=== PATIENT | male | born 1950 | race Two or more races ===

== ENCOUNTER → 2017-07-20 | Outpatient (CLI) | payer BC, MEDICARE ==
--- NOTE | 2017-07-20 19:13 | RADIOLOGY REPORT (SQ) ---
EXAM DESCRIPTION: TIBIA FIBULA LEFT COMPLETED DATE/TIME: 07/20/2017 7:03 pm REASON FOR STUDY: PAIN IN LEFT LOWER LEG COMPARISON: None. NUMBER OF VIEWS: Two views. TECHNIQUE: Two radiographic images acquired of the left tibia and fibula to include the knee and ank le in at least one projection. LIMITATIONS: None. FINDINGS: MINERALIZATION: Normal. BONES: No acute fracture or dislocation. No worrisome bone lesions. SOFT TISSUES: No obvious swelling or foreign body. OTHER: No other significant finding. IMPRESSION: NEGATIVE STUDY OF THE LEFT TIBIA AND FIBULA. NO RADIOGRAPHIC EVIDENCE OF ACUTE INJURY. TECHNICAL DOCUMENTATION: JOB ID: [id number] [employer]- All Rights Reserved Reading location - IP/workstation name: [email or web address]
== END ==
LOC: RAD 18:46
PROVIDERS: ATTEND Family Medicine
DX: M79.662 Pain in left lower leg (principal)

== ENCOUNTER → 2018-02-19 | Outpatient (CLI) | payer BC, MEDICARE ==
[2018-02-19 08:59] LABS: HEMATOCRIT 44.4 % (37.9-51.0); MEAN CORPUSCULAR HEMOGLOBIN 29.8 pg (27.0-33.4); MEAN CORPUSCULAR HGB CONC 33.8 g/dL (32.0-36.0); MEAN CORPUSCULAR VOLUME 88 fl (80-97); PLATELET COUNT 191 10^3/uL (150-450); RED BLOOD COUNT 5.04 10^6/uL (4.35-5.55); RED CELL DISTRIBUTION WIDTH 13.8 % (11.5-14.0); WHITE BLOOD COUNT 5.1 10^3/uL (4.0-10.5)
[2018-02-19 09:04] LABS: INTERNATIONAL RATION (INR) 0.95; PROTHROMBIN TIME 13.2 SEC (11.4-15.4)
[2018-02-19 09:05] LABS: PARTIAL THROMBOPLASTIN TIME 32.3 SEC (23.5-35.8)
[2018-02-19 09:17] LABS: BLOOD UREA NITROGEN 13 mg/dL (7-20); GLUCOSE 183 mg/dL (75-110)
[2018-02-19 12:37] LABS: FLUID APPEARANCE HAZY; FLUID COLOR YELLOW; FLUID TYPE PLEURAL; FLUID VISCOSITY LIQUID
--- NOTE | 2018-02-19 12:48 | RADIOLOGY REPORT (SQ) ---
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 PROCEDURE: Procedure, risks, benefit, and alternative explained to patient who then gave written con sent. The posterior left chest wall was marked using ultrasound guidance. A time-out was called for correct marking verification. Chest prepped and draped using sterile technique. Local anesthesia ac hieved using 3.5 ml of 1% lidocaine injection. A 6fr Safe-T- Centesis set was introduced into the le ft pleural space. Fluid was aspirated. The catheter was removed and the entry site was covered with sterile bandage. No immediate complications noted. Fluid was sent for testing as per Dr. Marquis Images acquired during the procedure were stored on PACS. FINDINGS: ENTRY SITE: Left posterior pleural space FLUID VOLUME: 850 mL FLUID ANALYSIS: Clear yellow fluid OTHER: Sent for testing as per ordering doctor IMPRESSION: SUCCESSFUL LEFT THORACENTESIS USING ULTRASOUND GUIDANCE. COMMENT: Patient medication list reviewed: Yes- Quality ID# [id number]:Eligible professional attests to doc umenting in the medical record they obtained, updated, or reviewed the patient's current medications. TECHNICAL DOCUMENTATION: JOB ID: [id number] [employer]- All Rights Reserved Reading location - IP/workstation name: [email or web address]
--- NOTE | 2018-02-19 12:55 | RADIOLOGY REPORT (SQ) ---
EXAM DESCRIPTION: CHEST SINGLE VIEW COMPLETED DATE/TIME: 02/19/2018 11:28 am REASON FOR STUDY: S/P LEFT THORACENTESIS COMPARISON: 06/27/2011 EXAM PARAMETERS: NUMBER OF VIEWS: One view. TECHNIQUE: Single frontal radiographic view of the chest acquired. RADIATION DOSE: NA LIMITATIONS: None. FINDINGS: LUNGS AND PLEURA: No pneumothorax post left thoracentesis. Left lower lobe partial collapse and consolidation with retrocardiac air bronchograms. No acute infiltrates right side. No right or left pleural effusion. MEDIASTINUM AND HILAR STRUCTURES: Enlarged left hilum worrisome for mass. Fullness in the AP window region worrisome for adenopathy. HEART AND VASCULAR STRUCTURES: Heart normal in size. Normal vasculature. BONES: No acute findings. HARDWARE: None in the chest. OTHER: No other significant finding. IMPRESSION: No pneumothorax post left ultrasound-guided thoracentesis. Partial collapse left lower lobe with consolidation likely atelectasis. Left hilar and AP window mediastinal mass TECHNICAL DOCUMENTATION: JOB ID: [id number] [employer]- All Rights Reserved Reading location - IP/workstation name: [facility]-RR
[2018-02-19 12:56] LABS: FLUID SOURCE LUNG
[2018-02-19 14:20] VITALS: BP 115/77
--- NOTE | 2018-02-19 14:35 | RADIOLOGY REPORT (SQ) ---
EXAM DESCRIPTION: CHEST SINGLE VIEW COMPLETED DATE/TIME: 02/19/2018 2:21 pm REASON FOR STUDY: 2 HOURS S/P LEFT THORACENTESIS AT 1325 COMPARISON: Earlier the same day. EXAM PARAMETERS: NUMBER OF VIEWS: One view. TECHNIQUE: Single frontal radiographic view of the chest acquired. RADIATION DOSE: NA LIMITATIONS: None. FINDINGS: LUNGS AND PLEURA: No opacities, masses or pneumothorax. No pleural effusion. MEDIASTINUM AND HILAR STRUCTURES: No masses. Contour normal. HEART AND VASCULAR STRUCTURES: Heart normal in size. Normal vasculature. BONES: No acute findings. HARDWARE: None in the chest. OTHER: No other significant finding. IMPRESSION: No pneumothorax 2 hours status post left-sided thoracentesis. TECHNICAL DOCUMENTATION: JOB ID: [id number] [employer]- All Rights Reserved Reading location - IP/workstation name: [email or web address]
--- NOTE | 2018-02-20 08:54 | RADIOLOGY REPORT (SQ) ---
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 TECHNIQUE: Blood glucose level was verified. Above dose of FDG was injected intravenously. 2-D seg mented attenuation correction images were obtained from the base of the skull to the midthighs. Nonc ontrast CT images were obtained for attenuation correction and fusion with emission images. CT image s were performed without oral or intravenous contrast and are not sensitive for parenchymal lesions. A series of overlapping emission PET images were obtained. Images reviewed and manipulated at [facility] work station by the radiologist. Images stored on PACS. LIMITATIONS: None. FINDINGS: HEAD AND NECK: No areas of abnormal metabolic activity in the soft tissues of the head and neck. CHEST: An anterior mediastinal mass is present encasing the aortic arch, main pulmonary artery and le ft upper lobe pulmonary vein. This extends into the AP window and left hilum, and measures 17 cm nut cracker niocaudad by 11 cm AP x 4 cm transverse. This is homogeneously metabolically active with a SUV of 8. 6. Findings are worrisome for lymphoproliferative process. There is a trace left residual pleural effusion after yesterday's thoracentesis. Along the inferior medial aspect of the pleural space, there is spotty increased pleural activity with SUV of 4.0. Ther e is minimal left basilar airspace disease with SUV of 2.0. There is a left inferior axillary 1.1 cm lymph node without significant metabolic activity. ABDOMEN AND PELVIS: Along the pancreatic body just to the left of midline, a 5 x 4.6 cm mass is prese nt, with metabolically active tissue centrally with SUV of 4.6. This is worrisome for primary pancre atic tumor. In the left retroperitoneum, dorsal to the left renal vein a 2 x 1.3 cm lymph node is present with XAVIER V of 6.5. About 20 cm from the anus, a 2 cm long segment of sigmoid colon wall thickening and luminal narrowing is present with SUV of 5.6. This could represent a sigmoid colon tumor. PROXIMAL LOWER EXTREMITIES: No areas of abnormal metabolic activity in the soft tissues of the lower extremities. BONES: No abnormal metabolic activity in the visualized skeleton. ADDITIONAL CT FINDINGS: Age-appropriate cervical degenerative disc changes. Mild atherosclerotic becka cification of the carotid bifurcations, moderate LAD calcification. 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 2 mm left upper pole, 5 mm left lower pole int rarenal nonobstructive stones. Age-appropriate degenerative disc changes lumbar spine. Few colon di verticuli without CT signs of acute diverticulitis. OTHER: Liver background SUV 2.5. Blood pool background SUV 1.6 measured at the left atrium. Too muc h scatter along the aortic arch from the adjacent mediastinal hypermetabolic tissue. IMPRESSION: Anterior mediastinal mass 17 x 11 x 4 cm with increased activity worrisome for lymphoma. Trace residual left pleural effusion with minimal increased pleural metabolic activity 5 x 4.6 cm mass in the body of the pancreas worrisome for primary tumor Focal sigmoid colon wall thickening, luminal narrowing with increased SUV worrisome for sigmoid colon malignancy Metabolically active left retroperitoneal lymph node just dorsal to the left renal vein TECHNICAL DOCUMENTATION: JOB ID: [id number] [employer]- All Rights Reserved Reading location - IP/workstation name: [email or web address]
== END | disposition home or self-care (01) ==
LOC: RAD 17:34
PROVIDERS: ATTEND Internal Medicine
DX: C25.9 Malignant neoplasm of pancreas, unspecified (principal); J91.8 Pleural effusion in other conditions classified elsewhere
CPT/HCPCS: 36415; 87205; 87070; 88185 ×15; 88184; 82962; 84520; 82565; 82947; 85027; 85610; 85730; 89050; 87075; 83615; 84157; 88162; 88305 ×2; 71045; 32555; 78815; A9552

== ENCOUNTER → 2018-02-19 | Day surgery (SDC) | payer BC, MEDICARE | LOC: RAD 08:27 | PROVIDERS: ATTEND Internal Medicine | DX: C25.9 Malignant neoplasm of pancreas, unspecified (principal); E11.9 Type 2 diabetes mellitus without complications; E78.5 Hyperlipidemia, unspecified; I10 Essential (primary) hypertension; M19.90 Unspecified osteoarthritis, unspecified site; C44.91 Basal cell carcinoma of skin, unspecified; Z88.8 Allergy status to other drugs, medicaments and biological substances | CPT/HCPCS: 32555; 36415; 71045; 78815; 82565; 82947; 82962; 83615; 84157; 84520; 85027; 85610; 85730; 87070; 87075; 87205; 88305; 89050; A9552 ==

== ENCOUNTER → 2018-02-26 | Outpatient (CLI) | payer BC, MEDICARE ==
--- NOTE | 2018-02-26 10:33 | RADIOLOGY REPORT (SQ) ---
EXAM DESCRIPTION: CHEST 2 VIEWS COMPLETED DATE/TIME: 02/26/2018 9:57 am REASON FOR STUDY: MALIGNANT PLEURAL EFFUSION,SHORTNESS OF BREATH COMPARISON: 02/19/2018 EXAM PARAMETERS: NUMBER OF VIEWS: two views TECHNIQUE: Digital Frontal and Lateral radiographic views of the chest acquired. RADIATION DOSE: NA LIMITATIONS: none FINDINGS: LUNGS AND PLEURA: There is increasing left pleural effusion. No pneumothorax or consolida tion. MEDIASTINUM AND HILAR STRUCTURES: No masses or contour abnormalities. HEART AND VASCULAR STRUCTURES: Heart normal size. No evidence for failure. BONES: No acute findings. HARDWARE: None in the chest. OTHER: No other significant finding. IMPRESSION: Increasing left-sided pleural effusion. TECHNICAL DOCUMENTATION: JOB ID: [id number] [employer]- All Rights Reserved Reading location - IP/workstation name: [email or web address]
== END ==
LOC: RAD 09:21
PROVIDERS: ATTEND Internal Medicine
DX: R06.02 Shortness of breath (principal); J91.0 Malignant pleural effusion
CPT/HCPCS: 71046

== ENCOUNTER → 2018-04-15 | Outpatient (CLI) | payer BC, MEDICARE ==
[2018-04-15 20:09] LABS: HEMATOCRIT 44.3 % (37.9-51.0); HEMOGLOBIN 15.4 g/dL (13.5-17.0); MEAN CORPUSCULAR HGB CONC 34.7 g/dL (32.0-36.0); MEAN CORPUSCULAR VOLUME 86 fl (80-97); PLATELET COUNT 199 10^3/uL (150-450); RED BLOOD COUNT 5.13 10^6/uL (4.35-5.55); RED CELL DISTRIBUTION WIDTH 13.3 % (11.5-14.0); WHITE BLOOD COUNT 7.5 10^3/uL (4.0-10.5)
[2018-04-15 20:16] LABS: ALANINE AMINOTRANSFERASE 20 U/L (21-72); ALBUMIN 3.8 g/dL (3.5-5.0); ALKALINE PHOSPHATASE 80 U/L (38-126); ANION GAP 8 (5-19); ASPARTATE AMINO TRANSFERASE 15 U/L (17-59); BILIRUBIN,DIRECT 0.2 mg/dL (0.0-0.4); BILIRUBIN,TOTAL 0.8 mg/dL (0.2-1.3); BLOOD UREA NITROGEN 18 mg/dL (7-20); CALCIUM 9.8 mg/dL (8.4-10.2); CARBON DIOXIDE 34 mmol/L (22-30); CHLORIDE 95 mmol/L (98-107); GLUCOSE 274 mg/dL (75-110); POTASSIUM 3.7 mmol/L (3.6-5.0); SODIUM 136.8 mmol/L (137-145); TOTAL PROTEIN 6.4 g/dL (6.3-8.2)
[2018-04-15 20:26] LABS: ABSOLUTE LYMPHOCYTES# (MANUAL) 0.3 10^3/uL (0.5-4.7); ABSOLUTE NEUTROPHILS# (MANUAL) 5.7 10^3/uL (1.7-8.2); BASOPHILS % (MANUAL) 0 % (0-2); EOSINOPHILS % (MANUAL) 7 % (0-6); LYMPHOCYTES % (MANUAL) 4 % (13-45); MONOCYTES % (MANUAL) 13 % (3-13); PLATELET CLUMPS PRESENT; PLATELET COMMENT ADEQUATE; RBC MORPHOLOGY COMMENT NORMO-CYTIC/CHROMIC; SEGMENTED NEUTROPHILS % (MAN) 76 % (42-78); TOTAL CELLS COUNTED 100
== END ==
LOC: LAB 19:44
PROVIDERS: ATTEND Family Medicine
DX: C82.92 Follicular lymphoma, unspecified, intrathoracic lymph nodes (principal); E11.65 Type 2 diabetes mellitus with hyperglycemia
CPT/HCPCS: 36415; 80053; 85025

== ENCOUNTER 2018-09-25 04:28 | Emergency (ER) | payer BC, MEDICARE ==
--- NOTE | 2018-09-25 05:12 | RADIOLOGY REPORT (SQ) ---
EXAM DESCRIPTION: XR CHEST 1 VIEW COMPLETED DATE/TME: 09/25/2018 04:46 CLINICAL HISTORY: 68 years, Male, SOB COMPARISON: 02/26/2018 chest NUMBER OF VIEWS: 1 TECHNIQUE: Portable chest LIMITATIONS: None. FINDINGS: Elevation of left hemidiaphragm. Cardiomegaly. Mcnepo-o-Peay catheter in place. Lungs are clear. No pneumothorax IMPRESSION: Cardiomegaly. Lungs are clear copyright 2010 [employer]- All Rights Reserved
--- NOTE | 2018-09-25 05:19 | ER Document Report ---
ED General - General TRAVEL OUTSIDE OF THE [place] IN LAST 30 DAYS: No <JUANY PERYERA - Last Filed: 09/25/18 08:05> <ESVIN CHILDERS - Last Filed: 09/25/18 09:02> - General Chief Complaint: Shortness Of Breath Stated Complaint: DIFFICULTY BREATHING Time Seen by Provider: 09/25/18 04:55 Primary Care Provider: JAMARCUS STRAUSS MD [ACTIVE STAFF] - Follow up as needed Notes: Well-appearing 5-year-old man with history of lymphoma with chemotherapy last 1 month ago presents to the emergency department for a sudden onset cough and chest pain approximately 90 minutes ago. States the chest pain is worse when he coughs but does have some very mild chest pain at rest. Patient was sleeping and it suddenly woke him up. His states that there was some mild diaphoresis. Patient denies any nausea. Did complain of some very mild shortness of breath. Denies any fevers or recent illness. (JUANY PEREYRA) - Related Data Allergies/Adverse Reactions: Cephalosporins Allergy (Unknown, Unverified 02/18/18 14:47) amoxicillin [Amoxicillin] Allergy (Verified 02/18/18 14:47) Generalized Itching GAURANG Inhibitors [Gaurang Inhibitors] Adverse Reaction (Severe, Verified 02/18/18 14:47) Swollen uvula ACEINHIBITORS [GAURANG Inhibitors] Adverse Reaction (Severe, Verified 06/23/11 08:37) SWOLLEN UVULA Past Medical History - Past Medical History Cardiac Medical History: Reports: Hx Hypercholesterolemia, Hx Hypertension Denies: Hx Atrial Fibrillation, Hx Congestive Heart Failure, Hx Coronary Artery Disease, Hx Heart Attack, Hx Peripheral Vascular Disease, Hx Heart Murmur Pulmonary Medical History: Denies: Hx Asthma, Hx Bronchitis, Hx COPD, Hx Pneumonia, Hx Tuberculosis Neurological Medical History: Denies: Hx Cerebrovascular Accident, Hx Seizures GI Medical History: Denies: Hx Crohn's Disease, Hx Gastroesophageal Reflux Disease, Hx Hepatitis, Hx Hiatal Hernia, Hx Irritable Bowel, Hx Liver Failure, Hx Pancreatitis, Hx Ulcer Musculoskeletal Medical History: Reports Hx Arthritis - GENERALIZED Infectious Medical History: Denies: Hx Hepatitis Past Surgical History: Denies: Hx Colostomy, Hx Open Heart Surgery, Hx Pacemaker - Immunizations Hx Diphtheria, Pertussis, Tetanus Vaccination: Yes <JUANY PEREYRA - Last Filed: 09/25/18 08:05> - Social History Smoking Status: Never Smoker Cigarette use (# per day): No Chew tobacco use (# tins/day): No Smoking Education Provided: No Frequency of alcohol use: None Drug Abuse: None Family History: Reviewed & Not Pertinent <JOSEESVIN Emma - Last Filed: 09/25/18 09:02> Review of Systems - Review of Systems Constitutional: See HPI EENT: No symptoms reported Cardiovascular: See HPI Respiratory: See HPI Gastrointestinal: See HPI Genitourinary: No symptoms reported Male Genitourinary: No symptoms reported Musculoskeletal: No symptoms reported Skin: No symptoms reported Hematologic/Lymphatic: No symptoms reported Neurological/Psychological: No symptoms reported <JUANY PEREYRA - Last Filed: 09/25/18 08:05> Physical Exam <JUANY PEREYRA - Last Filed: 09/25/18 08:05> - Vital signs Vitals: Temp Pulse Resp BP Pulse Ox 97.7 F 62 18 185/96 H 98 09/25/18 04:32 09/25/18 04:32 09/25/18 04:32 09/25/18 04:32 09/25/18 04:32 - Notes Notes: PHYSICAL EXAMINATION: Reviewed vital signs and charting by RN GENERAL: Well-appearing, well-nourished and in no acute distress. LUNGS: Breath sounds present, equal, and clear to auscultation bilaterally. No wheezes, rales, or rhonchi. HEART: Regular rate and rhythm without murmurs, rubs, or gallops. 2+ peripheral pulses. Normal capillary refill. ABDOMEN: Soft, nontender, nondistended. Normoactive bowel sounds. No guarding, no rebound. No masses appreciated. BACK: Normal contour, no midline tenderness. Rectal exam deferred. EXTREMITIES: Normal range of motion, no pitting or edema. No cyanosis. PSYCH: Normal mood, normal affect. No suicidal thoughts/ideations. No homocidal thoughts/ideations. No hallucinations. SKIN: Warm, dry, normal turgor, no rashes or lesions noted. (JUANY PEREYRA) Course - Laboratory Result Diagrams: 09/25/18 05:16 09/25/18 05:16 <JUANY PEREYRA - Last Filed: 09/25/18 08:05> - Laboratory Result Diagrams: 09/25/18 05:16 09/25/18 05:16 <ESVIN CHILDERS - Last Filed: 09/25/18 09:02> - Re-evaluation Re-evalutation: 09/25/18 05:15 Unable to PERC patient out. Discussed with patient that our recommendation would be to obtain CTA chest to ensure patient does not have a pulmonary embolism dissection. Patient was concerned about the radiation load considering his cancer and refused to agree to the CTA. Patient understands these risks and is of sound mind and capable to make his own decisions. Patient did agree to get basic labs and troponin to ensure no other cardiac process. 09/25/18 05:36 Patient and his had a discussion and patient ultimately agreed to obtain the CTA chest. He did request an anxiolytic as he requires them for all of his procedures. His states that Dr. José patel was given him Xanax but they did not bring any of medications with them. I have ordered Xanax 0.5 mg p.o. 1 time. 09/25/18 07:33 CTA chest negative for any aortic dissection or pulmonary embolism. Repeat troponin is ordered and scheduled to be drawn at 8:15 AM. Patient has stated he does not wish to stay in the hospital for any period of observation. (JUANY PEREYRA) 09/25/18 08:59 This Clovis Childers physician respiratory therapy assistant I have taken over patient's care for Keo in the shift supervisor PA. I have gone in and meant the patient and his and was instructed by the provider that we are waiting on a repeat troponin and if that were negative they were ready for discharge. Patient is awake alert and oriented x4 he is in no shortness of breath no chest pain and is currently ready to go home. His is a family practice physician and she is also in favor of him going home. I was informed that he has a history of lymphoma and is just gotten done with a recent chemo therapy approximately a month ago and developed a cough with a little bit of light chest pain and decided to come and have it checked out. According to the provider and his everything has been negative patient is feeling much better and they have elected to be discharged home. At this time I will discharge him home on they will follow-up as needed. Patient's troponins were both negative. (ESVIN CHILDERS) - Vital Signs Vital signs: Temp Pulse Resp BP Pulse Ox 97.7 F 62 18 185/96 H 94 09/25/18 04:32 09/25/18 04:32 09/25/18 08:00 09/25/18 04:32 09/25/18 08:00 - Laboratory Laboratory results interpreted by me: 09/25/18 09/25/18 05:16 05:16 WBC 2.7 L RBC 4.30 L RDW 14.3 H Plt Count 147 L Monocytes % (Manual) 33 H Abs Neuts (Manual) 1.1 L Carbon Dioxide 31 H Glucose 159 H Discharge <JUANY PEREYRA - Last Filed: 09/25/18 08:05> <ESVIN CHILDERS - Last Filed: 09/25/18 09:02> - Discharge Clinical Impression: Shortness of breath Condition: Stable Disposition: HOME, SELF-CARE Additional Instructions: You were seen in the emergency department this morning for shortness of breath and chest pain. Your work-up did not reveal any concerning cardiac pathology or emergent situation that would require hospitalization. Your CTA chest did not show evidence of a pulmonary embolism or concern for aortic dissection. At this time I understand you do not want to stay in the hospital for a period of observation so it is important that you adhere to strict return precautions. If you have any worsening chest pain, tearing sensation in your chest, acute worsening shortness of breath, acute weakness, or any other symptoms that concern you please do not hesitate to return to the emergency department for reevaluation. Referrals: JAMARCUS STRAUSS MD [ACTIVE STAFF] - Follow up as needed
[2018-09-25 05:34] LABS: HEMOGLOBIN 13.7 g/dL (13.5-17.0); MEAN CORPUSCULAR HGB CONC 34.3 g/dL (32.0-36.0); MEAN CORPUSCULAR VOLUME 93 fl (80-97); RED CELL DISTRIBUTION WIDTH 14.3 % (11.5-14.0); WHITE BLOOD COUNT 2.7 10^3/uL (4.0-10.5)
[2018-09-25] MEDS ORDERED: ALPRAZOLAM 0.5 MG TABLET PO ONE (05:35)
[2018-09-25 05:46] LABS: ALANINE AMINOTRANSFERASE 40 U/L (21-72); ALBUMIN 4.1 g/dL (3.5-5.0); ALKALINE PHOSPHATASE 63 U/L (38-126); ANION GAP 10 (5-19); ASPARTATE AMINO TRANSFERASE 26 U/L (17-59); BILIRUBIN,DIRECT 0.2 mg/dL (0.0-0.4); BILIRUBIN,TOTAL 0.5 mg/dL (0.2-1.3); BLOOD UREA NITROGEN 16 mg/dL (7-20); CALCIUM 9.4 mg/dL (8.4-10.2); CARBON DIOXIDE 31 mmol/L (22-30); CHLORIDE 102 mmol/L (98-107); GLUCOSE 159 mg/dL (75-110); POTASSIUM 3.7 mmol/L (3.6-5.0); TOTAL PROTEIN 6.8 g/dL (6.3-8.2)
[2018-09-25 06:07] LABS: ABSOLUTE LYMPHOCYTES# (MANUAL) 0.6 10^3/uL (0.5-4.7); ABSOLUTE MONOCYTES # (MANUAL) 0.9 10^3/uL (0.1-1.4); ABSOLUTE NEUTROPHILS# (MANUAL) 1.1 10^3/uL (1.7-8.2); ANISOCYTOSIS SLIGHT; BASOPHILS % (MANUAL) 1 % (0-2); EOSINOPHILS % (MANUAL) 3 % (0-6); LYMPHOCYTES % (MANUAL) 21 % (13-45); PLATELET CLUMPS PRESENT; PLATELET COMMENT DECREASED; SEGMENTED NEUTROPHILS % (MAN) 42 % (42-78); TOTAL CELLS COUNTED 100
[2018-09-25 06:08] LABS: STOMATOCYTES SLIGHT
[2018-09-25 06:09] LABS: MONOCYTES % (MANUAL) 33 % (3-13)
[2018-09-25 06:10] LABS: PLATELET COUNT 147 10^3/uL (150-450)
--- NOTE | 2018-09-25 07:31 | RADIOLOGY REPORT (SQ) ---
EXAM: CT chest angiography with IV contrast CLINICAL DATA: 68-year-old male with shortness of breath and history of lymphoma. TECHNICAL DATA: Following the administration of intravenous contrast, multiple high-resolution axial images of the chest were performed followed by sagittal and coronal reconstructed images. Coronal oblique MIP images were also performed. The CT study is performed according to ALARA (as low as reasonably achievable) or ALARA/IMAGE GENTLY, with automatic adjustment of mA and/or kV according to patient size. Performed on: 09/25/2018 at 6:38 AM COMPARISONS: Prior CT chest performed on 02/14/[address] scan performed on 02/20/2018. FINDINGS: There is satisfactory visualization and contrast opacification of pulmonary arteries. No definite intra-arterial filling defects are identified to suggest acute or chronic pulmonary embolism. The thoracic aorta is normal in caliber and contour without evidence of aneurysm or dissection. A right subclavian central venous catheter is present and the tip extends into the superior vena cava. The lungs are well expanded. There is elevation of the left hemidiaphragm with atelectatic changes in the left lower lobe. There is a very small left pleural effusion. The lungs are otherwise clear. The heart is normal in size. There is trace pericardial fluid adjacent to the left ventricle. Additionally, there is an anterior mediastinal soft tissue mass versus pericardial thickening likely reflecting the patient's known lymphoma. There is no evidence of hilar, mediastinal or axillary lymphadenopathy. No acute osseous abnormality is identified. There is stable fullness in the body of the pancreas when compared to the prior study. IMPRESSION: 1. No CT evidence to suggest acute or chronic pulmonary embolism, aortic aneurysm or aortic dissection. 2. Elevation of the left hemidiaphragm with atelectatic changes in the left lower lobe and small left pleural effusion. 3. Anterior mediastinal soft tissue mass likely corresponding to the patient's lymphoma. The appearance is similar to slightly less prominent when compared to the prior CT scan. 4. Trace pericardial fluid adjacent to the left ventricle. 5. Stable fullness in the body of the pancreas when compared to the prior CT scan performed on 02/14/2018.
[2018-09-25 09:40] VITALS: BP 146/91
[2018-09-25 14:02] LABS: PATH REVIEW PATHOLOGIST REVIEWED
--- NOTE | 2018-09-25 22:16 | EKG REPORT ---
SEVERITY:- ABNORMAL ECG - SINUS RHYTHM PROBABLE INFERIOR INFARCT, AGE INDETERMINATE : Confirmed by: Lizet Stoddard MD 25-Sep-2018 22:15:22
== END 2018-09-25 09:40 | disposition home or self-care (01) ==
LOC: ER 04:28
DX: R06.02 Shortness of breath (principal); R05 Cough; R07.9 Chest pain, unspecified; R61 Generalized hyperhidrosis; I10 Essential (primary) hypertension; C85.90 Non-Hodgkin lymphoma, unspecified, unspecified site; Z88.1 Allergy status to other antibiotic agents; Z88.0 Allergy status to penicillin
CPT/HCPCS: 36415; 71045; 71275; 80053; 84484; 85025; 93005; 93010; 99284

== ENCOUNTER 2020-01-25 01:09 | Emergency (ER) | payer BC, MEDICARE ==
--- NOTE | 2020-01-25 01:46 | ER Document Report ---
ED Medical Screen (RME) - General Chief Complaint: Chest Pain Stated Complaint: CHEST PAIN Time Seen by Provider: 01/25/20 01:37 Primary Care Provider: LAURA CASTRO MD [Primary Care Provider] - Follow up as needed Notes: Patient presents with chest pain that started around 330 this afternoon. Patient states pain is worse when he rolls onto his side. Patient complains of pain with deep inspiration. Patient has a history of lymphoma and does have a mass within the chest. Patient denies any shortness of breath, cough or lightheadedness. Patient has a history of dyslipidemia, hypertension and diabetes. I have greeted and performed a rapid initial assessment of this patient. A comprehensive ED assessment and evaluation of the patient, analysis of test results and completion of the medical decision making process will be conducted by additional ED providers. TRAVEL OUTSIDE OF THE [place] IN LAST 30 DAYS: No - Related Data Allergies/Adverse Reactions: Cephalosporins Allergy (Unknown, Unverified 02/18/18 14:47) amoxicillin [Amoxicillin] Allergy (Verified 02/18/18 14:47) Generalized Itching GAURANG Inhibitors [Gaurang Inhibitors] Adverse Reaction (Severe, Verified 02/18/18 14:47) Swollen uvula ACEINHIBITORS [GAURANG Inhibitors] Adverse Reaction (Severe, Verified 06/23/11 08:37) SWOLLEN UVULA Past Medical History - Past Medical History Cardiac Medical History: Reports: Hx Hypercholesterolemia, Hx Hypertension Denies: Hx Atrial Fibrillation, Hx Congestive Heart Failure, Hx Coronary Artery Disease, Hx Heart Attack, Hx Peripheral Vascular Disease, Hx Heart Murmur Pulmonary Medical History: Denies: Hx Asthma, Hx Bronchitis, Hx COPD, Hx Pneumonia, Hx Tuberculosis Neurological Medical History: Denies: Hx Cerebrovascular Accident, Hx Seizures Renal/ Medical History: Denies: Hx Peritoneal Dialysis GI Medical History: Denies: Hx Crohn's Disease, Hx Gastroesophageal Reflux Disease, Hx Hepatitis, Hx Hiatal Hernia, Hx Irritable Bowel, Hx Liver Failure, Hx Pancreatitis, Hx Ulcer Musculoskeltal Medical History: Reports Hx Arthritis - GENERALIZED Infectious Medical History: Denies: Hx Hepatitis Past Surgical History: Denies: Hx Colostomy, Hx Open Heart Surgery, Hx Pacemaker - Immunizations Hx Diphtheria, Pertussis, Tetanus Vaccination: Yes Physical Exam - Vital signs Vitals: Temp Pulse Resp BP Pulse Ox 98.0 F 65 18 148/79 H 95 01/25/20 01:01/25/20 01:01/25/20 01:01/25/20 01:01/25/20 01:29 - Respiratory Respiratory status: No respiratory distress Course - Vital Signs Vital signs: Temp Pulse Resp BP Pulse Ox 98.0 F 65 18 148/79 H 95 01/25/20 01:01/25/20 01:01/25/20 01:01/25/20 01:01/25/20 01:29 Doctor's Discharge - Discharge Referrals: LAURA CASTRO MD [Primary Care Provider] - Follow up as needed
--- NOTE | 2020-01-25 02:44 | RADIOLOGY REPORT (SQ) ---
CLINICAL INDICATION: cp. TECHNIQUE: PA and lateral views were obtained of the chest COMPARISON: 12/26/2018. FINDINGS: The cardiomediastinal silhouette is prominent but stable. The lungs are grossly clear. No evidence of effusion or pneumothorax. Atelectasis left lung base. Dual chamber port remains in good position. . IMPRESSION: No evidence of active intrathoracic disease .
[2020-01-25 02:46] LABS: ABSOLUTE BASOPHILS # (AUTO) 0.1 10^3/uL (0.0-0.2); ABSOLUTE EOSINOPHILS # (AUTO) 0.1 10^3/uL (0.0-0.6); ABSOLUTE LYMPHOCYTES (AUTO) 0.4 10^3/uL (0.5-4.7); ABSOLUTE MONOCYTES (AUTO) 0.6 10^3/uL (0.1-1.4); ABSOLUTE NEUT (AUTO) 2.8 10^3/uL (1.7-8.2); EOSINOPHILS % (AUTO) 3.4 % (0-6); HEMOGLOBIN 14.6 g/dL (13.5-17.0); LYMPHOCYTES % (AUTO) 9.3 % (13-45); MEAN CORPUSCULAR HEMOGLOBIN 30.9 pg (27.0-33.4); MEAN CORPUSCULAR HGB CONC 33.9 g/dL (32.0-36.0); MEAN CORPUSCULAR VOLUME 91 fl (80-97); MONOCYTES % (AUTO) 16.2 % (3-13); PLATELET COUNT 152 10^3/uL (150-450); RED CELL DISTRIBUTION WIDTH 14.1 % (11.5-14.0); SEGMENTED NEUTROPHILS % (AUTO) 69.1 % (42-78); TOTAL CELLS COUNTED % (AUTO) 100 %
[2020-01-25 03:10] LABS: ALKALINE PHOSPHATASE 82 U/L (38-126); ANION GAP 8 (5-19); ASPARTATE AMINO TRANSFERASE 22 U/L (17-59); BILIRUBIN,DIRECT 0.2 mg/dL (0.0-0.4); BILIRUBIN,TOTAL 0.6 mg/dL (0.2-1.3); BLOOD UREA NITROGEN 18 mg/dL (7-20); CALCIUM 9.7 mg/dL (8.4-10.2); CARBON DIOXIDE 32 mmol/L (22-30); CHLORIDE 98 mmol/L (98-107); GLUCOSE 293 mg/dL (75-110); POTASSIUM 3.8 mmol/L (3.6-5.0); TOTAL PROTEIN 6.4 g/dL (6.3-8.2)
[2020-01-25 03:21] LABS: NT PRO BNP 126 pg/mL (<125)
[2020-01-25 03:22] LABS: TROPONIN I < 0.012 ng/mL
[2020-01-25] MEDS ORDERED: ALPRAZOLAM 0.25 MG TABLET PO ONE (05:05)
--- NOTE | 2020-01-25 05:11 | ER Document Report ---
ED Cardiac - General Chief Complaint: Chest Pain Stated Complaint: CHEST PAIN Time Seen by Provider: 01/25/20 01:37 Primary Care Provider: LAURA CASTRO MD [Primary Care Provider] - Follow up as needed Notes: Patient is a 69-year-old male with a history of lymphoma, currently on chemotherapy who presents the emergency department with a chief complaint of chest pain that started around 3:30 in the afternoon. Patient states that when he gets into certain positions, that is when he feels the pain. Sometimes when he stays still, he does not feel the pain. Patient also has a history of hypertension, diabetes, hyperlipidemia, arthritis, and seasonal allergies. Patient restarted chemotherapy on December 21. TRAVEL OUTSIDE OF THE [place] IN LAST 30 DAYS: No - Related Data Allergies/Adverse Reactions: Cephalosporins Allergy (Unknown, Verified 01/25/20 05:07) amoxicillin [Amoxicillin] Allergy (Verified 02/18/18 14:47) Generalized Itching GAURANG Inhibitors [Gaurang Inhibitors] Adverse Reaction (Severe, Verified 02/18/18 14:47) Swollen uvula ACEINHIBITORS [GAURANG Inhibitors] Adverse Reaction (Severe, Verified 06/23/11 08:37) SWOLLEN UVULA Past Medical History - Social History Smoking Status: Never Smoker Chew tobacco use (# tins/day): No Frequency of alcohol use: Rare Drug Abuse: None Family History: Reviewed & Not Pertinent - Past Medical History Cardiac Medical History: Reports: Hx Hypercholesterolemia, Hx Hypertension Denies: Hx Atrial Fibrillation, Hx Congestive Heart Failure, Hx Coronary Artery Disease, Hx Heart Attack, Hx Peripheral Vascular Disease, Hx Heart Murmur Pulmonary Medical History: Denies: Hx Asthma, Hx Bronchitis, Hx COPD, Hx Pneumonia, Hx Tuberculosis Neurological Medical History: Denies: Hx Cerebrovascular Accident, Hx Seizures Renal/ Medical History: Denies: Hx Peritoneal Dialysis GI Medical History: Denies: Hx Crohn's Disease, Hx Gastroesophageal Reflux Disease, Hx Hepatitis, Hx Hiatal Hernia, Hx Irritable Bowel, Hx Liver Failure, Hx Pancreatitis, Hx Ulcer Musculoskeletal Medical History: Reports Hx Arthritis - GENERALIZED Infectious Medical History: Denies: Hx Hepatitis Past Surgical History: Denies: Hx Colostomy, Hx Open Heart Surgery, Hx Pacemaker - Immunizations Hx Diphtheria, Pertussis, Tetanus Vaccination: Yes Review of Systems - Review of Systems Notes: REVIEW OF SYSTEMS: CONSTITUTIONAL : Denies recent illness. Denies recent unintentional weight loss. Denies fever, chills, or sweats. EENT: Denies eye, ear, throat, or mouth pain, discharge, or symptoms. Denies nasal or sinus congestion. CARDIOVASCULAR: See HPI. RESPIRATORY: Denies shortness of breath, cough, congestion, difficulty breathi ng, or wheezing. GASTROINTESTINAL: Denies nausea, vomiting, and diarrhea. Denies abdominal pain. Denies constipation. GENITOURINARY: Denies difficulty urinating, burning, blood in urine, urgency or frequency. MUSCULOSKELETAL: Denies neck and back pain. Denies joint pain or swelling. SKIN: Denies rash, itchiness, or lesions HEMATOLOGIC : Denies easy bruising or bleeding. LYMPHATIC: Denies swollen, painful, enlarged glands. NEUROLOGICAL: Denies no numbness or tingling denies weakness. Denies headache. Denies altered mental status. Denies alteration in speech. PSYCHIATRIC: Denies stress, anxiety, alteration in sleep patterns, or depression. All other systems reviewed and negative. Physical Exam - Vital signs Vitals: Temp Pulse Resp BP Pulse Ox 98.0 F 65 18 148/79 H 95 01/25/20 01:29 01/25/20 01:29 01/25/20 01:01/25/20 01:01/25/20 01:29 - Notes Notes: PHYSICAL EXAMINATION: GENERAL: Appears well, healthy, well-nourished, no acute distress. HEAD: Normocephalic, atraumatic. EYES: PERRL, conjunctiva normal, all extraocular movements intact, sclera nonicteric ENT: Moist mucous membranes. NECK: Supple, no noticeable swelling, redness, rash. Normal range of motion. LUNGS: Equal breath sounds bilaterally and clear to auscultation. No wheezes rales or rhonchi. CARDIOVASCULAR: S1-S2, regular rate, regular rhythm. Radial pulses 2+, normal. ABDOMEN: Normoactive bowel sounds. Soft, nontender, no guarding, no rebound te nderness, and no masses palpated. EXTREMITIES: Normal strength and range of motion, no pitting or edema. No cyanosis. NEUROLOGICAL: Moves all extremities upon command. Strength 5/5 in all extremi ties. PSYCH: Normal mood, normal affect. SKIN: Warm, dry. No rash, lesions, ulcerations noted. Normal skin turgor. Course - Re-evaluation Re-evalutation: 01/25/20 05:00 Hematology is unremarkable. No leukocytosis or anemia noted. Patient's glucose is slightly elevated. It is 293. Magnesium is also slightly elevated. Tropo moni is unremarkable. We will send patient for CTA of the chest to rule out pulmonary emboli, as he is on chemotherapy. 01/25/20 07:[address] Yuan, the patient's oncologist. At this time, she states that we will not see changes from the patient's chemotherapy until 3 months after chemotherapy has started. Relayed this information on to the patient and his . Second troponin is negative. Patient is to follow-up with Dr. Yuan on an outpatient basis. He is in agreement with this plan. Offered the patient medication for pain, but he would like to hold off at this time. Follow-up precautions were given. Verbal discharge instructions were given to the patient. They verbalized understanding. They are stable for discharge. - Vital Signs Vital signs: Temp Pulse Resp BP Pulse Ox 98 F 65 21 H 148/87 H 97 01/25/20 07:40 01/25/20 01:29 01/25/20 07:00 01/25/20 05:01 01/25/20 05:01 - Laboratory Result Diagrams: 01/25/20 02:07 01/25/20 02:07 Laboratory results interpreted by me: 01/25/20 01/25/20 01/25/20 02:07 02:07 02:07 RDW 14.1 H Lymph % (Auto) 9.3 L Saunders % (Auto) 16.2 H Absolute Lymphs (auto) 0.4 L Carbon Dioxide 32 H Glucose 293 H Magnesium 2.5 H NT-Pro-B Natriuret Pep 126 H - EKG Interpretation by Me Additional EKG results interpreted by me: 01/25/20 01:30 This EKG done at 1:20 has poor voltage in some leads. There is also a variation in the EKG due to the patient's breathing. Sinus rhythm. Rate 69. WY 188; QRS 92; QT 396; QTc 425. The "ST elevation" noted on the EKG reading does not appear to be true elevation due to patient's breathing. 01/25/20 05:57 Sinus bradycardia. Rate 59. WY 184; QRS 96; QT 428; QTc 424. No ST elevations or depressions noted. Discharge - Discharge Clinical Impression: Chest pain Qualifiers: Chest pain type: unspecified Qualified Code(s): R07.9 - Chest pain, unspecified Condition: Stable Disposition: HOME, SELF-CARE Additional Instructions: You were seen today in the emergency department for chest pain. Your work-up was reassuring. Your do not have a blood clot in your lungs and you are not having a heart attack. Please follow-up with Dr. Yuan on an outpatient basis. They will be reviewing your films this weekend. If you have worsening symptoms, please return to the emergency department. Referrals: LAURA CASTRO MD [Primary Care Provider] - Follow up as needed
--- NOTE | 2020-01-25 05:58 | RADIOLOGY REPORT (SQ) ---
CT angiogram chest with contrast on 01/25/2020 at 5:27 AM CLINICAL INDICATION: Shortness of breath, history of lymphoma TECHNIQUE: Multiple axial images are obtained throughout the chest following the administration of IV contrast. Computer generated 3D reconstructions/MIPS were performed. This exam was performed according to our departmental dose-optimization program, which includes automated exposure control, adjustment of the mA and/or kV according to patient size and/or use of iterative reconstruction technique. Total DLP is 954.33 mGy*cm. COMPARISON: 09/25/2018 FINDINGS: There is mild elevation of the left hemidiaphragm. There is trace left pleural effusion with mild atelectasis or scarring along the left hemidiaphragm. There is no thoracic aortic aneurysm or dissection. There is colonic diverticulosis in the upper abdomen. Limited visualized upper abdomen is otherwise unremarkable. There is no right pleural effusion or pericardial effusion. There is some greater soft tissue density in the anterior mediastinum especially in the right anterior mediastinum. The appearance is suggestive of Hodgkin's lymphoma and please correlate with the patient's prior tissue diagnosis. For example the greater area of soft tissue thickening is seen well on axial image 53 as compared to prior study also on image 53 which is essentially at the same level. Follow-up PET CT could better evaluate what is active versus treated lymphoma. No discrete thoracic adenopathy is noted. There are no filling defects within the pulmonary arteries to suggest pulmonary embolus. The lungs are otherwise clear. Degenerative changes are noted in the spine. IMPRESSION: 1. Worsening soft tissue density in the anterior mediastinum most consistent with worsening lymphoma involvement and this has an appearance suggesting Hodgkin's lymphoma but please correlate with patient's prior tissue diagnosis. Follow-up PET CT could better evaluate what is active versus treated disease. 2. No evidence of pulmonary embolus. 3. Trace left pleural effusion with mild chronic atelectasis or scarring along the left elevated hemidiaphragm.
[2020-01-25 07:16] VITALS: BP 148/87
--- NOTE | 2020-01-25 20:18 | EKG REPORT ---
SEVERITY:- NORMAL ECG - SINUS RHYTHM : Confirmed by: Lizet Stoddard MD 25-Jan-2020 20:18:03
--- NOTE | 2020-01-25 20:19 | EKG REPORT ---
SEVERITY:- ABNORMAL ECG - SINUS OR ECTOPIC ATRIAL RHYTHM PROBABLE INFERIOR INFARCT, AGE INDETERMINATE MINIMAL ST ELEVATION, ANTERIOR LEADS : Confirmed by: Lizet Stoddard MD 25-Jan-2020 20:18:14
== END 2020-01-25 07:41 | disposition home or self-care (01) ==
LOC: ER 01:09
DX: R07.1 Chest pain on breathing (principal); C85.90 Non-Hodgkin lymphoma, unspecified, unspecified site; J90 Pleural effusion, not elsewhere classified; R00.1 Bradycardia, unspecified; I10 Essential (primary) hypertension; E11.9 Type 2 diabetes mellitus without complications; Z79.899 Other long term (current) drug therapy; Z88.1 Allergy status to other antibiotic agents; Z88.0 Allergy status to penicillin
CPT/HCPCS: 36415; 71046; 71275; 80053; 83735; 83880; 84484; 85025; 93005; 93010; 99285

== ENCOUNTER → 2020-04-27 | Outpatient (CLI) | payer BC, MEDICARE ==
[2020-04-27 14:42] VITALS: BP 183/84
--- NOTE | 2020-04-27 14:42 | ER RDC ASSESSMENT REPORT ---
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 - Symptoms Subjective Fever([place] feverish): No Chills: No Muscule Aches: No Runny Nose: No Sore Throat: No Cough (New or worsening chronic cough): No Shortness of breath: No Nausea or Vomiting: Yes Headache: No Abdominal Pain: No Diarrhea(3 or more loose stools in last 24 hours): Yes - Do you have any of the following Chronic lung disease: Asthma or emphysema or COPD: No Cystic Fibrosis: No Diabetes: Yes High Blood Pressure: Yes Cardiovascular Disease: Yes Chronic Kidney Disease: No Chronic Liver Disease: No Chronic blood disorder like Sickle Cell Disease: Yes Weak immune system due to disease or medication: Yes Neurologic condition that limits movement: No Developmental delay - Moderate to Severe: No Morbid Obesity (>100 pounds over ideal weight): No - Objective Temperature: 98.2 F Pulse Rate: 70 Respiratory Rate: 16 Blood Pressure: 183/84 O2 Sat by Pulse Oximetry: 93 Objective: Given above, testing performed: covid Disposition: Home; Selfcare General - General Stated Complaint: Diarrhea Mode of Arrival: Ambulatory Information source: Patient - HPI Notes: 69-year-old male presents to [facility] for COVID-19 testing. 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 Onset of symptoms 04/26/2020. Patient is reporting 3 episodes of diarrhea accompanied by some mild nausea. Denies any fever or chills, muscle aches, runny nose, sore throat or cough, shortness of breath, headache or abdominal pain. - Related Data Allergies/Adverse Reactions: Cephalosporins Allergy (Unknown, Verified 01/25/20 05:07) amoxicillin [Amoxicillin] Allergy (Verified 02/18/18 14:47) Generalized Itching GAURANG Inhibitors [Gaurang Inhibitors] Adverse Reaction (Severe, Verified 02/18/18 14:47) Swollen uvula ACEINHIBITORS [GAURANG Inhibitors] Adverse Reaction (Severe, Verified 06/23/11 08:37) SWOLLEN UVULA Past Medical History - General Information source: Patient - Social History Smoking Status: Never Smoker Family History: Reviewed & Not Pertinent - Past Medical History Cardiac Medical History: Reports: Hx Hypercholesterolemia, Hx Hypertension Denies: Hx Atrial Fibrillation, Hx Congestive Heart Failure, Hx Coronary Artery Disease, Hx Heart Attack, Hx Peripheral Vascular Disease, Hx Heart Murmur Pulmonary Medical History: Reports: None Denies: Hx Asthma, Hx Bronchitis, Hx COPD, Hx Pneumonia, Hx Tuberculosis EENT Medical History: Reports: None Neurological Medical History: Reports: None. Denies: Hx Cerebrovascular Accident, Hx Seizures Endocrine Medical History: Reports: Hx Diabetes Mellitus Type 2 Renal/ Medical History: Reports: None. Denies: Hx Peritoneal Dialysis Malignancy Medical History: Reports Hx Lymphoma GI Medical History: Reports: None. Denies: Hx Crohn's Disease, Hx Gastroesophageal Reflux Disease, Hx Hepatitis, Hx Hiatal Hernia, Hx Irritable Bowel, Hx Liver Failure, Hx Pancreatitis, Hx Ulcer Musculoskeletal Medical History: Reports Hx Arthritis - GENERALIZED Skin Medical History: Reports None Psychiatric Medical History: Reports: None Traumatic Medical History: Reports: None Infectious Medical History: Reports: None. Denies: Hx Hepatitis Past Surgical History: Reports: None. Denies: Hx Colostomy, Hx Open Heart Surgery, Hx Pacemaker Physical Exam - Vital signs Interpretation: Hypertensive - General General appearance: Appears well, Alert In distress: None Notes: PHYSICAL EXAMINATION: GENERAL: Well-appearing and in no acute distress. HEAD: Atraumatic, normocephalic. EYES: sclera anicteric, conjunctiva are normal. ENT: nares patent. Moist mucous membranes. NECK: Normal range of motion, supple without lymphadenopathy. LUNGS: No increased work of breathing. Lung sounds CTAB and equal. No wheezes rales or rhonchi. HEART: Regular rate and rhythm without murmurs. ABDOMEN: Soft, nontender, normal bowel sounds, no guarding. EXTREMITIES: Normal range of motion, no pitting edema. No cyanosis. NEUROLOGICAL: A&O x 3. Normal speech. PSYCH: Normal mood, normal affect. SKIN: Warm, Dry, normal turgor, no rashes or lesions noted Patient Education/Counseling Counseling/Education: Patient presents with symptoms associated with possible Covid 19 infection. Patient does not have emergency worrying symptoms such as difficulty breathing, shortness of breath, chest pain, pressure, confusion or cyanosis. Patient appears suitable for discharge as vital signs are stable and patient is nontoxic in appearance. Good return precautions have been discussed with patient, patient verbalized understanding and is agreeable with discharge plan of care at this time. Guidance for worsening S/SX: As a person under investigation for Covid 19, the [facility] of Health and Human Services, division of public health advises you to adhere to the following guidance until your test results are reported to you. If your test result is positive, you will receive additional information from your provider and your local health department at that time. Remain at home until you are cleared by the health provider or public health authorities. Keep a log of visitors to your home, notify any visitors to your home of your isolation status. If you plan to move to a new address or leave the county, notify the local health department in your County. Call your doctor or seek care if you have an urgent medical need. Before seeking medical care, call ahead to get instructions from the provider before arriving at the medical office clinic or hospital. Notify them that you are being tested for the virus that causes Covid 19 so that arrangements can be made, as necessary, to prevent transmission to others in the healthcare setting. Next, notify the local health department in your county. If a medical emergency arises and you need to call 911, inform the first responders that you are being tested for the virus that causes Covid 19. Next, notify the local health department in your county. RDC Discharge - Discharge Clinical Impression: Encounter for screening laboratory testing for COVID-19 virus Condition: Stable Disposition: Home; Selfcare
== END ==
LOC: RDC 12:34
PROVIDERS: ATTEND Registered Nurse
DX: Z20.828 Contact with and (suspected) exposure to other viral communicable diseases (principal)
CPT/HCPCS: 99201; 99211; U0003; C9803; 87635